=== PATIENT | female | born 1945 | race Caucasian/White ===

== ENCOUNTER 2024-06-06 20:47 | Emergency (ER) | payer MEDICARE ==
[~2024-06-06] VITALS: Ht 162.6 cm; Wt 64.4 kg
[2024-06-06] MEDS ORDERED: Ketorolac Tromethamine 30mg Vial IM ONE (21:10)
[2024-06-06] MEDS ORDERED: HYDROcodone 5-APAP 325 TAB PO ONE (21:35)
[2024-06-06] MEDS ORDERED: Ondansetron 4 MG SoluTab SL ONE (21:35)
== END 2024-06-06 22:27 | disposition home or self-care (01) ==
LOC: ER 20:47
DX: M62.830 Muscle spasm of back (principal); Z88.8 Allergy status to other drugs, medicaments and biological substances
CPT/HCPCS: 96372; 99283-25; A9270; J1885